=== PATIENT | female | born 1960 | race Caucasian/White ===

== ENCOUNTER 2021-02-14 10:51 | Outpatient (CLI) | payer OTHER, SELFPAY ==
--- NOTE | ~2021-02-14 | MM_ITS ---
EXAMINATION: MM screening [facility] BI w av HISTORY: Screening TECHNIQUE: Craniocaudal and mediolateral oblique 3-D tomosynthesis images were obtained and synthetic 2-D images were generated. CAD analysis was submitted and interpreted. COMPARISON: Comparison to multiple prior studies sequentially, with oldest reviewed study dated 08/14. BREAST PARENCHYMAL COMPOSITION: There are scattered areas of fibroglandular density. FINDINGS: There is no evidence of suspicious mass, calcification, or architectural distortion to sugg est malignancy in either breast. There has been no suspicious interval change. IMPRESSION: 1. No mammographic evidence of malignancy. 2. Recommend routine screening mammography in one year. BI-RADS Category 1: Negative Reviewed, dictated and finalized at location A.
--- NOTE | ~2021-02-14 | DEXA_ITS ---
Bone Density Report Name: Melodie Coon Age: 61 Sex: Female Ethnicity: White Date of : 1960 Indication: osteopenia; prior fracture; hysterectomy; postmenopausal Referring Provider: Jayne Zuleta Study: Bone densitometry was performed. Exam Date: February 14, 2021 Accession number: [id number] Bone Density: Region BMD T-score Z-score Classification AP Spine (L1-L4) 0.737 -2.8 -1.2 Osteoporosis Femoral Neck (Left) 0.557 -2.6 -1.2 Osteoporosis Total Hip (Left) 0.736 -1.7 -0.6 Osteopenia Femoral Neck (Right) 0.545 -2.7 -1.3 Osteoporosis Total Hip (Right) 0.670 -2.2 -1.1 Osteopenia Total Hip Mean 0.703 -2.0 -0.9 Osteopenia World Health Organization criteria for BMD impression classify patients as: Normal (T-score at or above -1.0), Osteopenia (T-score between -1.0 and -2.5), or Osteoporosis (T-score at or below -2.5). 10-year Fracture Risk: FRAX not reported because: Some T-score for Spine Total or Hip Total or Femoral Neck at or below -2.5 Previous Exams: Region Exam Age BMD T-score BMD Change BMD Change Date g/cm2 vs Baseline vs Previous AP Spine(L1-L4) 02/14/2021 61 0.737 -2.8 -0.068* -0.068* 05/15/2013 53 0.806 -2.2 Total Hip(Left) 02/14/2021 61 0.736 -1.7 -0.071* -0.071* 05/15/2013 53 0.807 -1.1 Total Hip(Right) 02/14/2021 61 0.670 -2.2 -0.065* -0.065* 05/15/2013 53 0.735 -1.7 *Denotes significance at 95% confidence level, LSC for AP Spine = 0.022 g/cm2, LSC for Total Hip = 0.027 g/cm2 Clinical Information Provided by Patient: Has had a low trauma fracture Has the following medical conditions: Hysterectomy Patient maximum height was 62 Menopause Age: 43 Does not regularly consume dairy products Drinks caffeinated beverages Onset of menses at age 9 Number of children 2 Impression: The patient has established osteoporosis, based on the Total Spine T-score and the existence of a prior fracture. The patient has risk factors, including: previous fracture. The BMD for the AP Spine(L1-L4) decreased, changing by -0.068 since the last DXA exam. The BMD for the Total Hip(Left) decreased, changing by -0.071 since the last DXA exam. The BMD for the Total Hip(Right) decreased, changing by -0.065 since the last DXA exam. Discussion: HIGH RISK OF FRACTURE. BONE DENSITY IS UNDESIRABLY LOW AT ONE OR MORE SKELETAL SITES, CONSISTENT WITH POSTMENOPAUSAL OSTEOPOROSIS. This patient's lowest T-score, in
== END 2021-02-14 10:52 ==
PROVIDERS: PCP Nurse Practitioner Family; Visit Provider Student in an Organized Health Care Education/Training Program
DX: Z12.31 Encounter for screening mammogram for malignant neoplasm of breast (principal); Z78.0 Asymptomatic menopausal state; M81.0 Age-related osteoporosis without current pathological fracture; M85.852 Other specified disorders of bone density and structure, left thigh; M85.851 Other specified disorders of bone density and structure, right thigh
CPT/HCPCS: 77063; 77067; 77080

== ENCOUNTER 2022-03-12 14:02 | Outpatient (CLI) | payer OTHER, SELFPAY ==
[2022-03-12 19:58] LABS: Hematocrit 40.8 % (37.0-47.0); Hemoglobin 13.8 g/dL (12.0-15.0); Mean Corpuscular HGB Conc 33.8 g/dl (32-36); Mean Corpuscular Hemoglobin 30.7 pg (26-34); Mean Corpuscular Volume 90.7 fl (80-100); Mean Platelet Volume 10.7 fl (7.4-10.4); Platelet Count Result 173 k/mm3 (150-375); Red Cell Distribution Width 12.3 % (11.5-14.5); White Blood Count 4.3 K/mm3 (4.5-10.0)
[2022-03-12 21:18] LABS: Alanine Aminotransferase 16 U/L (6-35); Albumin Level 4.4 g/dL (3.5-5.1); Alkaline Phosphatase 80 U/L (38-126); Anion Gap 9 mmol/L (8-16); Aspartate Amino Transferase 40 U/L (14-36); Bilirubin,Total 0.8 mg/dL (0.2-1.3); Blood Urea Nitrogen 19 mg/dL (7-17); Calcium 9.5 mg/dL (8.4-10.2); Carbon Dioxide 26 mmol/L (22-30); Chloride 103 mmol/L (98-107); Cholesterol 127 mg/dL (0-200); Estimated Glomerular Filt Rate > 60; Glucose 95 mg/dL (65-110); HDL Direct 35 mg/dL; Potassium 4.1 mmol/L (3.4-5.0); Sodium 138 mmol/L (137-145); Triglycerides 145 mg/dL (<150)
[2022-03-12 21:28] LABS: LDL Cholesterol Direct 65 mg/dL
== END 2022-03-12 14:03 | disposition home or self-care (01) ==
LOC: ANHBWCLAB 14:04
PROVIDERS: PCP Family Medicine; Visit Provider Family Medicine
DX: Z00.00 Encounter for general adult medical examination without abnormal findings (principal); E03.9 Hypothyroidism, unspecified
CPT/HCPCS: 36415; 80053; 80061; 84443; 85027

== ENCOUNTER 2022-03-26 09:21 | Outpatient (CLI) | payer OTHER, SELFPAY ==
[2022-03-26 19:24] LABS: Basophils Percent Auto 1.2 % (0.2-1.2); Eosinophils Absolute Auto 0.1 K/mm3 (0-0.3); Eosinophils Percent Auto 2.6 % (0-4.4); Hemoglobin 13.5 g/dL (12.0-15.0); Immature Granulocyte Absolute 0.01 K/mm3 (0.00-0.031); Immature Granulocyte Percent A 0.3 % (0-0.5); Lymphocytes Absolute Auto 1.23 K/mm3 (0.9-3.2); Lymphocytes Percent Auto 36.1 % (18.3-44.2); Mean Corpuscular HGB Conc 33.8 g/dl (32-36); Mean Corpuscular Hemoglobin 30.8 pg (26-34); Mean Corpuscular Volume 91.1 fl (80-100); Mean Platelet Volume 10.9 fl (7.4-10.4); Monocytes Absolute Auto 0.3 K/mm3 (0.1-0.6); Monocytes Percent Auto 9.7 % (2.6-8.5); Neutrophils Absolute Auto 1.7 K/mm3 (1.3-6.7); Neutrophils Percent Auto 50.1 % (45.5-73.1); Platelet Count Result 182 k/mm3 (150-375); Red Blood Count 4.39 M/mm3 (4.2-5.4); Red Cell Distribution Width 12.7 % (11.5-14.5); White Blood Count 3.4 K/mm3 (4.5-10.0)
[2022-03-26 19:36] LABS: Alanine Aminotransferase 13 U/L (6-35); Albumin Level 4.1 g/dL (3.5-5.1); Alkaline Phosphatase 81 U/L (38-126); Aspartate Amino Transferase 49 U/L (14-36); Bilirubin,Total 0.8 mg/dL (0.2-1.3)
[2022-03-26 19:59] LABS: Thyroid Stimulating Hormone 0.371 uIU/mL (0.465-4.680)
[2022-03-26 20:09] LABS: Hepatitis B Surface Antigen Negative (Negative)
[2022-03-26 20:15] LABS: HAV RESULT Negative (Negative); Hepatitis B Core IgM Result Negative (Negative)
[2022-03-26 21:17] LABS: Hepatitis C Virus Antibody Reactive (Negative)
[2022-03-30 13:48] LABS: Hepatitis C RNA, Quant PCR <15 IU/mL
== END 2022-03-26 09:22 | disposition home or self-care (01) ==
PROVIDERS: PCP Family Medicine; Visit Provider Family Medicine
DX: D72.819 Decreased white blood cell count, unspecified (principal); R74.8 Abnormal levels of other serum enzymes; R79.89 Other specified abnormal findings of blood chemistry
CPT/HCPCS: 36415; 80074; 80076; 84443; 85025; 87522

== ENCOUNTER 2022-06-10 08:33 | Outpatient (CLI) | payer OTHER, SELFPAY ==
[2022-06-10 19:47] LABS: Alanine Aminotransferase 15 U/L (6-35); Alkaline Phosphatase 63 U/L (38-126); Aspartate Amino Transferase 42 U/L (14-36); Bilirubin,Total 0.8 mg/dL (0.2-1.3)
== END 2022-06-10 08:34 | disposition home or self-care (01) ==
PROVIDERS: PCP Family Medicine; Visit Provider Family Medicine
DX: R74.8 Abnormal levels of other serum enzymes (principal); R79.89 Other specified abnormal findings of blood chemistry
CPT/HCPCS: 36415; 80076; 84443

== ENCOUNTER → 2022-07-02 08:08 | Outpatient (CLI) | payer OTHER, SELFPAY ==
--- NOTE | ~2022-07-02 | US_ITS ---
US abdomen limited INDICATION: Elevated liver function tests PROCEDURE: Realtime right upper abdominal ultrasound. COMPARISON: No prior studies for comparison. FINDINGS: The pancreas is normal without focal mass or pancreatic ductal dilation. There are multipl e liver cysts, largest measuring 1.9 cm. There is an echogenic focus in the liver measuring 9 mm, lik alberta focal calcification. There is fatty infiltration of the liver. There is normal directional flow i n the portal vein. The gallbladder is normal without stones, gallbladder wall thickening or pericholecystic fluid. Comm on bile duct measures 4 mm. No sonographic Hankins's sign. Incidental note is made of a 3.3 cm right renal cyst. IMPRESSION: 1: Liver and right renal cysts. 2: Hepatic steatosis. Reviewed, dictated and finalized at location A. SPOT WASHER
== END ==
LOC: EXPGOSHRAD 08:10
PROVIDERS: PCP Family Medicine; Visit Provider Family Medicine
DX: R74.8 Abnormal levels of other serum enzymes (principal); N28.1 Cyst of kidney, acquired; K76.89 Other specified diseases of liver; K76.0 Fatty (change of) liver, not elsewhere classified
CPT/HCPCS: 76705

== ENCOUNTER 2022-08-06 11:37 | Outpatient (CLI) | payer MEDICAID, SELFPAY ==
[2022-08-06 11:50] LABS: Basophils Percent Auto 0.9 % (0.2-1.2); Eosinophils Absolute Auto 0.2 K/mm3 (0-0.3); Eosinophils Percent Auto 3.9 % (0-4.4); Hematocrit 40.3 % (37.0-47.0); Hemoglobin 13.8 g/dL (12.0-15.0); Immature Granulocyte Absolute 0.01 K/mm3 (0.00-0.031); Immature Granulocyte Percent A 0.2 % (0-0.5); Lymphocytes Absolute Auto 1.27 K/mm3 (0.9-3.2); Mean Corpuscular HGB Conc 34.2 g/dl (32-36); Mean Corpuscular Hemoglobin 31.2 pg (26-34); Mean Platelet Volume 9.9 fl (7.4-10.4); Monocytes Absolute Auto 0.4 K/mm3 (0.1-0.6); Monocytes Percent Auto 9.4 % (2.6-8.5); Neutrophils Absolute Auto 2.5 K/mm3 (1.3-6.7); Neutrophils Percent Auto 56.6 % (45.5-73.1); Platelet Count Result 166 k/mm3 (150-375); Red Blood Count 4.43 M/mm3 (4.2-5.4); Red Cell Distribution Width 12.1 % (11.5-14.5); White Blood Count 4.4 K/mm3 (4.5-10.0)
[2022-08-06 12:35] LABS: Iron 75 ug/dL (37-170)
[2022-08-06 12:37] LABS: Alanine Aminotransferase 19 U/L (6-35); Albumin Level 4.4 g/dL (3.5-5.1); Alkaline Phosphatase 69 U/L (38-126); Anion Gap 8 mmol/L (8-16); Aspartate Amino Transferase 22 U/L (14-36); Bilirubin,Total 0.5 mg/dL (0.2-1.3); Blood Urea Nitrogen 15 mg/dL (7-17); Calcium 8.9 mg/dL (8.4-10.2); Carbon Dioxide 27 mmol/L (22-30); Chloride 106 mmol/L (98-107); Estimated Glomerular Filt Rate > 60; Glucose 100 mg/dL (65-110); Lactate Dehydrogenase 133 U/L (120-246); Potassium 4.1 mmol/L (3.4-5.0); Sodium 141 mmol/L (137-145)
[2022-08-06 12:45] LABS: Percent Iron Saturation 30 % (20-50)
[2022-08-06 13:45] LABS: Folic Acid > 20.0 ng/mL (2.76->20); Vitamin B12 > 1000.0 pg/mL (239-931)
[2022-08-10 14:28] LABS: Methylmalonic Acid 133 nmol/L (87-318)
== END 2022-08-06 11:38 | disposition home or self-care (01) ==
LOC: ANHLAB 11:38
PROVIDERS: PCP Family Medicine; Visit Provider Internal Medicine Hematology & Oncology
DX: D72.819 Decreased white blood cell count, unspecified (principal)
CPT/HCPCS: 36415; 80053; 82607; 82728; 82746; 83540; 83550; 83615; 83921; 85025; 86038; 86039

== ENCOUNTER 2022-12-24 09:36 | Outpatient (CLI) | payer OTHER, SELFPAY ==
--- NOTE | ~2022-12-24 | XR_ITS ---
EXAMINATION: [id number] INDICATION: Left upper chest pain TECHNIQUE: A frontal view of the chest and 3 views of the left ribs were obtained. COMPARISON: None. FINDINGS: The lungs are free of acute opacities. No pleural effusion or pneumothorax. The cardiomedia stinal silhouette is normal. No displaced rib fracture is identified. IMPRESSION: 1. No acute cardiopulmonary abnormality or evidence of displaced rib fracture. Reviewed, dictated and finalized at location L.
== END 2022-12-24 09:37 | disposition home or self-care (01) ==
LOC: ANHBWCIMG 09:38
PROVIDERS: PCP Family Medicine; Visit Provider Nurse Practitioner
DX: R07.81 Pleurodynia (principal)
CPT/HCPCS: 71101

== ENCOUNTER 2023-03-15 08:40 | Outpatient (CLI) | payer MEDICARE, SELFPAY ==
[2023-03-15 19:24] LABS: Basophils Percent Auto 0.9 % (0.2-1.2); Eosinophils Absolute Auto 0.1 K/mm3 (0-0.3); Eosinophils Percent Auto 1.7 % (0-4.4); Hematocrit 40.8 % (37.0-47.0); Hemoglobin 13.4 g/dL (12.0-15.0); Immature Granulocyte Absolute 0.01 K/mm3 (0.00-0.031); Immature Granulocyte Percent A 0.2 % (0-0.5); Lymphocytes Absolute Auto 0.95 K/mm3 (0.9-3.2); Lymphocytes Percent Auto 20.5 % (18.3-44.2); Mean Corpuscular HGB Conc 32.8 g/dl (32-36); Mean Corpuscular Hemoglobin 31.2 pg (26-34); Mean Corpuscular Volume 94.9 fl (80-100); Mean Platelet Volume 10.7 fl (7.4-10.4); Monocytes Absolute Auto 0.4 K/mm3 (0.1-0.6); Monocytes Percent Auto 8.4 % (2.6-8.5); Neutrophils Absolute Auto 3.2 K/mm3 (1.3-6.7); Neutrophils Percent Auto 68.3 % (45.5-73.1); Platelet Count Result 166 k/mm3 (150-375); Red Cell Distribution Width 12.4 % (11.5-14.5); White Blood Count 4.6 K/mm3 (4.5-10.0)
[2023-03-15 20:57] LABS: Folic Acid > 20.0 ng/mL (2.76->20)
== END 2023-03-15 08:41 | disposition home or self-care (01) ==
PROVIDERS: PCP Family Medicine; Visit Provider Internal Medicine Hematology & Oncology
DX: D72.819 Decreased white blood cell count, unspecified (principal)
CPT/HCPCS: 36415; 82607; 82746; 85025

== ENCOUNTER → 2023-09-09 10:46 | Outpatient (CLI) | payer MEDICARE, SELFPAY ==
--- NOTE | ~2023-09-09 | MM_ITS ---
EXAMINATION: MM screening [facility] BI w av HISTORY: Screening mammogram TECHNIQUE: Craniocaudal and mediolateral oblique 3-D tomosynthesis images were obtained and synthetic 2-D images were generated. CAD analysis was submitted and interpreted. COMPARISON: 02/14/2021, 09/23/2018, 04/26/2017, 04/14/2017 BREAST PARENCHYMAL COMPOSITION: There are scattered areas of fibroglandular density. FINDINGS: No suspicious mass, calcification, or architectural distortion are identified in either chelo ast to suggest malignancy. There has been no suspicious interval change. IMPRESSION: 1. No mammographic evidence of malignancy. 2. Recommend routine screening mammography in one year. BI-RADS Category 1: Negative Reviewed, dictated and finalized at location A. SCHOOL MUSIC DIRECTOR
== END ==
PROVIDERS: PCP Family Medicine; Visit Provider Family Medicine
DX: Z12.31 Encounter for screening mammogram for malignant neoplasm of breast (principal)
CPT/HCPCS: 77063; 77067

== ENCOUNTER 2023-12-09 09:41 | Outpatient (CLI) | payer MEDICARE, SELFPAY ==
[2023-12-09 19:02] LABS: Hematocrit 42.6 % (37.0-47.0); Hemoglobin 13.9 g/dL (12.0-15.0); Mean Corpuscular HGB Conc 32.6 g/dl (32-36); Mean Corpuscular Hemoglobin 30.6 pg (26-34); Mean Corpuscular Volume 93.8 fl (80-100); Mean Platelet Volume 10.4 fl (7.4-10.4); Platelet Count Result 168 k/mm3 (150-375); Red Blood Count 4.54 M/mm3 (4.2-5.4); Red Cell Distribution Width 12.7 % (11.5-14.5); White Blood Count 3.6 K/mm3 (4.5-10.0)
[2023-12-09 19:16] LABS: Anion Gap 6 mmol/L (4-12); Blood Urea Nitrogen 19 mg/dL (7-17); Calcium 9.4 mg/dL (8.4-10.2); Carbon Dioxide 28 mmol/L (22-30); Chloride 106 mmol/L (98-107); Cholesterol 150 mg/dL (0-200); Estimated Glomerular Filt Rate > 60; Glucose 81 mg/dL (65-110); HDL Direct 43 mg/dL; Potassium 4.1 mmol/L (3.4-5.0); Sodium 140 mmol/L (137-145); Triglycerides 110 mg/dL (<150)
[2023-12-09 19:30] LABS: LDL Cholesterol Direct 86 mg/dL
[2023-12-09 19:42] LABS: Thyroid Stimulating Hormone 0.901 uIU/mL (0.465-4.680)
[2023-12-09 20:03] LABS: Vitamin D 25 Hydroxy 47.5 ng/mL
== END 2023-12-09 09:42 | disposition home or self-care (01) ==
PROVIDERS: PCP Nurse Practitioner Adult Health; Visit Provider Nurse Practitioner Adult Health
DX: E04.1 Nontoxic single thyroid nodule (principal); I10 Essential (primary) hypertension; M81.0 Age-related osteoporosis without current pathological fracture
CPT/HCPCS: 36415; 80048; 80061; 82306; 84443; 85027

== ENCOUNTER 2024-02-17 08:49 | Outpatient (CLI) | payer MEDICARE, SELFPAY ==
[2024-02-17 19:14] LABS: Appearance Urine Clear (Clear); Bacteria Urine None Seen /hpf; Bilirubin Urine Negative (Negative); Blood Urine Negative (Negative); Color Urine Yellow (Yellow); Glucose Urine UA Negative (Negative); Ketones Urine Negative (Negative); Leukocyte Esterase Ur 3+ LEU/UL (Negative); Nitrate Urine Negative (Negative); Protein Urine Negative (Negative); RBC Urine 0-2 /hpf (0-2); Specific Grav Ur 1.012 (1.001-1.035); Squamous Epithelial Cell Urine None Seen /hpf (Few); Urobilinogen Urine 0.2 mg/dL (<2.0); WBC Urine 51-100 /hpf (0-3); pH Urine 6.5 (5.0-9.0)
[2024-02-17 19:28] LABS: Add Urine Microscopic? YES
== END 2024-02-17 08:50 | disposition home or self-care (01) ==
PROVIDERS: PCP Nurse Practitioner Adult Health; Visit Provider Nurse Practitioner Adult Health
DX: R39.9 Unspecified symptoms and signs involving the genitourinary system (principal)
CPT/HCPCS: 81001; 87086

== ENCOUNTER 2024-04-26 10:27 | Outpatient (CLI) | payer MEDICARE, SELFPAY ==
[2024-04-26 18:58] LABS: Basophils Absolute Auto 0.1 K/mm3 (0.0-0.1); Basophils Percent Auto 1.1 % (0.2-1.2); Eosinophils Absolute Auto 0.1 K/mm3 (0-0.3); Eosinophils Percent Auto 1.7 % (0-4.4); Hematocrit 41.7 % (37.0-47.0); Hemoglobin 14.3 g/dL (12.0-15.0); Immature Granulocyte Absolute 0.01 K/mm3 (0.00-0.031); Immature Granulocyte Percent A 0.2 % (0-0.5); Lymphocytes Absolute Auto 1.32 K/mm3 (0.9-3.2); Lymphocytes Percent Auto 28.8 % (18.3-44.2); Mean Corpuscular HGB Conc 34.3 g/dl (32-36); Mean Corpuscular Hemoglobin 31.8 pg (26-34); Mean Corpuscular Volume 92.9 fl (80-100); Mean Platelet Volume 10.4 fl (7.4-10.4); Monocytes Absolute Auto 0.4 K/mm3 (0.1-0.6); Monocytes Percent Auto 8.3 % (2.6-8.5); Neutrophils Absolute Auto 2.7 K/mm3 (1.3-6.7); Neutrophils Percent Auto 59.9 % (45.5-73.1); Platelet Count Result 155 k/mm3 (150-375); Red Blood Count 4.49 M/mm3 (4.2-5.4); Red Cell Distribution Width 12.2 % (11.5-14.5); White Blood Count 4.6 K/mm3 (4.5-10.0)
[2024-04-26 19:46] LABS: Anion Gap 4 mmol/L (4-12); Blood Urea Nitrogen 16 mg/dL (7-17); Carbon Dioxide 29 mmol/L (22-30); Chloride 106 mmol/L (98-107); Estimated Glomerular Filt Rate > 60; Glucose 97 mg/dL (65-110); Potassium 4.4 mmol/L (3.4-5.0); Sodium 139 mmol/L (137-145)
[2024-04-26 20:54] LABS: Folic Acid > 20.0 ng/mL (2.76->20)
== END 2024-04-26 10:28 | disposition home or self-care (01) ==
LOC: ANHBWCLAB 10:29
PROVIDERS: PCP Nurse Practitioner Adult Health; Visit Provider Internal Medicine Hematology & Oncology
DX: D72.819 Decreased white blood cell count, unspecified (principal)
CPT/HCPCS: 36415; 80048; 82607; 82746; 85025

== ENCOUNTER 2024-06-15 10:22 | Outpatient (CLI) | payer MEDICARE, SELFPAY ==
[2024-06-15 19:29] LABS: Thyroid Stimulating Hormone 0.735 uIU/mL (0.465-4.680)
== END 2024-06-15 10:23 | disposition home or self-care (01) ==
PROVIDERS: PCP Nurse Practitioner Adult Health; Visit Provider Nurse Practitioner Adult Health
DX: E03.9 Hypothyroidism, unspecified (principal)
CPT/HCPCS: 36415; 84443

== ENCOUNTER 2024-09-14 10:39 | Outpatient (CLI) | payer MEDICARE, SELFPAY ==
--- NOTE | ~2024-09-14 | MM_ITS ---
EXAMINATION: MM screening [facility] BI w av HISTORY: Screening TECHNIQUE: Craniocaudal and mediolateral oblique 3-D tomosynthesis images were obtained and synthetic 2-D images were generated. CAD analysis was submitted and interpreted. COMPARISON: Comparison to multiple prior studies sequentially, with oldest reviewed study dated 2016. BREAST PARENCHYMAL COMPOSITION: Not dense: There are scattered areas of fibroglandular density. FINDINGS: There is no evidence of suspicious mass, calcification, or architectural distortion to sugg est malignancy in either breast. There has been no suspicious interval change. IMPRESSION: 1. No mammographic evidence of malignancy. 2. Recommend routine screening mammography in one year. BI-RADS Category 1: Negative Reviewed, dictated and finalized at location B. DOCTOR
== END 2024-09-14 10:40 | disposition home or self-care (01) ==
LOC: MICIMG 10:39
PROVIDERS: PCP Nurse Practitioner Adult Health; Visit Provider Family Medicine
DX: Z12.31 Encounter for screening mammogram for malignant neoplasm of breast (principal)
CPT/HCPCS: 77063; 77067

== ENCOUNTER 2025-04-30 08:41 | Outpatient (CLI) | payer MEDICARE, SELFPAY ==
--- OUTSIDE RECORDS SUMMARY | 2025-04-30 09:12 | XMS_ITS | Clinical Summary ---
Author Organization [address] Address [address] [place] [address] Care Team Providers Care Tiller Man Name Role Phone Selene Amezcua NP Primary Care Provider [phone] Allergies No known active allergies Medications cyanocobalamin (Vitamin B-12) 1,000 mcg tablet 06/11/2015Vitamin B-12, po solid 1000 mcg TabletPOas directedCurrent Medication 06/11/20 15 Active multivitamin with minerals tablet Take 1 tablet by mouth daily Active vitamin B complex capsule Take 1 capsule by mouth daily Active acidophilus-pect in, citrus 100 million cell-10 mg capsule Take by mouth daily Probiotic Active ONCOLOGY NON FORMULARY, FOR INPATIENT USE, Take by mouth daily Tart Mejia Active fluticasone propionate (FLONASE) 50 mcg/actuation nasal sprayIndications :Seasonal allergic rhinitis, unspecified trigger Administer 2 sprays into each nostril daily 16 g 01/01/20 21 Active Additional Information Patient not taking.Reported on 06/02/2021 levothyroxine (SYNTHROID) 100 mcg tablet Take 1 tablet (100 mcg total) by mouth balance sheet analyst before breakfast 90 tablet 3 03/13/20 21 Active calcium cit/mag/D3/Zn/co p/alona (CALCIUM CITRATE PLUS ORAL) Take 1,000 mg by mouth Active alendronate (FOSAMAX) 70 mg tabletIndication s:Osteoporosis without current pathological fracture, unspecified osteoporosis type Take 1 tablet (70 mg total) by mouth every 7 days Take in the morning with a full glass of water, on an empty stomach, and do not take anything else by mouth or lie down for the next 30 min. 4 tablet 11 06/02/20 21 Active Eliquis 5 mg tablet Take 1 tablet by mouth twice daily 90 tablet 03/12/20 22 Active meclizine (ANTIVERT) 25 mg tablet Take 1 tablet (25 mg total) by mouth 3 (three) times a day as needed for dizziness 30 tablet 01/12/20 25 Active Active Problems Problem Noted Date Diagnosed Date Acute right-sided low back pain without sciatica 09/19/2020 Assessment & Plan (09/19/2020 1:38 PM SOLICITOR PATENT): Medrol dose pack sent. Not to use NSAIDs while taking medrol. Encouraged otc tylenol prn back pain. Tylenol 3000g/day max dose. Discussed ice, gentle ROM, increased activity/core strengthening & other non pharm methods of pain relief. Can continue cyclobenzaprine that was sent. Reviewed that she can cut in half (makes her sleepy). Denies bowel/bladder dysfunction. Denies cauda equina. Reviewed red flags. Encounter for osteoporosis s creening in asymptomatic postmenopausal patient 08/19/2020 Assessment & Plan (08/19/2020 9:37 AM SOLICITOR PATENT): DEXA ordered. Will contact with results once received. Hypothyroidism 08/19/2020 Assessment & Plan (08/19/2020 10:05 AM SOLICITOR PATENT): Levothyroxine 100mcg daily TSH/T4 ordered; will contact with results when received. Reviewed med SE & scheduling. Reviewed sxs hypo/hyperthyroidism. No changes at this time. Encounter for screening mamm ogram for malignant neoplasm of breast 08/19/2020 Assessment & Plan (08/19/2020 9:38 AM SOLICITOR PATENT): Mammogram order given; will call with results when received. Encouraged to perform monthly SBE. Personal history of pulmonary embolism Assessment & Plan (08/19/2020 10:04 AM SOLICITOR PATENT): Taking eliquis 5mg BID. Has had 3 PE's since 1984 (2 since 2015). Encounter for screening for lipoid disorders Assessment & Plan (08/19/2020 9:38 AM SOLICITOR PATENT): Lipid panel ordered; will call w/results when received. Reviewed diet/exercise recommendations. History of hepatitis C 08/19/2020 Assessment & Plan (08/19/2020 10:18 AM SOLICITOR PATENT): H/o Hep C from blood transfusion. Completed treatment 6-7 yrs ago. Has completely resolved. Anemia 05/09/2015 Resolved Problems Problem Noted Date Diagnosed Date Resolved Date Class 1 obesity due to exces s calories without serious comorbidity with body mass index (BMI) of 30.0 to 30.9 in adult 09/19/202002/2021 Assessment & Plan (09/19/2020 1:15 PM SOLICITOR PATENT): Reviewed need to lose weight, reviewed health benefits. Reviewed recommendations for daily intake & activity 20-30 minutes/day. Discussed healthy diet and importance of regular physical activity. BMI 29.0-29.9,adult 08/19/2020 09/19/19 Assessment & Plan (08/19/2020 9:37 AM SOLICITOR PATENT): Reviewed need to lose weight, reviewed health benefits. Reviewed recommendations for daily intake & activity 20-30 minutes/day. Discussed healthy diet and importance of regular physical activity. Need for influenza vaccination 08/19/2020 09/19/2020 Assessment & Plan (08/19/2020 9:37 AM SOLICITOR PATENT): Flu vaccine given today. Discussed possible tenderness/redness at injection site. Encounter for medical examin [facility] [place] to establish care 08/19/2020 09/19/2020 Assessment & Plan (08/19/2020 9:40 AM SOLICITOR PATENT): -reviewed screening guidelines: no family history of breast or colon cancer. -Denies SBE, encouraged monthly SBEs. Mammogram screening to start at 40 y/o unless concerns before that time. -Colonoscopy recommended at 50 years of age. -UTD on immunizations. -discussed diet/exercise: daily recommendations of 20-30 minutes physical activity daily, watch fat/sugar intake. -denies safety/violence. Wears seatbelt. Aware to not text/talk and drive. -does not smoke nor drink ETOH -lives at home with supportive family Other halfway (current) drug therapy 05/09/2015 08/19/2020 Pulmonary embolism 04/27/2014 Viral hepatitis C without hepatic coma 11/25/2012 08/19/2020 Chronic hepatitis 05/27/2012 08/19/2020 Assessment & Plan (08/19/2020 10:02 AM SOLICITOR PATENT): H/o Hep C from blood transfusion. Completed treatment 6-7 yrs ago. Has completely resolved. Immunizations Immunization Administration Dates Next Due Influenza, Quadrivalent, Spl it, Preservative Free, Intramuscular 08/19/2020 Influenza, Trivalent, IM (MDV) 08/12/2015 Influenza, Trivalent, Preser vative Free, Intramuscular 04/26/2016 Influenza, Unspecified 05/13/2022,2020(Deferred: Patient Refused),07/26/2020(Deferred: Patient Refused),04/25/2019(Deferred: Patient Refused),04/25/2018,06/11/2015, 015,09/04/2014,08/14/2014 Surgical History Surgery Date Site/Laterality Comments SECTION 06/25/1979 - 07/25/1979 SECTION 03/26/1985 - 04/24/1985 ECTOPIC SURGERY 02/23/1983 - 03/25/1983 HYSTERECTOMY 07/26/1986 - 07/25/1987 HERNIA REPAIR 1989? BREAST LUMPECTOMY 2 removed, 1989? Medical History Medical History Date Comments Hypothyroidism Pulmonary embolism 1984, two in last 5-6 years (since 2015) Infectious viral hepatitis Family History Medical History Relation Name Comments Stroke Brother 1 Lenin while working o ut in gym, collapsed Hypertension Brother 2 Milton Prostate cancer Brother 2 Milton Stroke Brother 3 Arnoldo Osteoporosis Mother Stroke Mother Thyroid disease Mother Hypertension Sister Relation Name Status Comments Brother 1 Lenin (Age 69) Brother 2 Milton Alive Brother 3 Arnoldo Alive Father Alive Mother (Age 81) Sister Alive Social History Tobacco Use Types Packs/Day Years Used Date Smoking Tobacco: Never Smokeless Tobacco: Never Alcohol Use Standard Drinks/Week Comments Never 0 (1 standard drink = 0.6 oz pur e alcohol) AUDIT-C Answer Date Recorded Q1: How often do you have a drink containing alc ohol? Monthly or less 06/02/2021 Q2: How many drinks containi ng alcohol do you have on a typical day when you are drinking? 1 or 2 06/02/2021 Q3: How often do you have si x or more drinks on one occasion? Never 06/02/2021 PHQ-2 Answer Date Recorded PHQ-2 Total Score (If total score is 3 or more points, staff should administer the PHQ-9) 0 06/02/2021 Personal Safety Answer Date Recorded Have you ever been in or are you currently in a harmful physical or emotional relationship or is someone making you feel afraid or unsafe? Denies 01/10/2025 Comments No Sex and Gender Information Value Date Recorded Sex Assigned at Not on file Legal Sex Female 3:39 AM SOLICITOR PATENT Gender Identity Not on file Sexual Orientation Not on file Obstetrics History Last Filed Vital Signs Vital Sign Reading Time Taken Comments Blood Pressure 143/78 01/11/2025 1:15 AM CDT Pulse 69 01/11/2025 1:15 AM CDT Temperature 37.1 C (98.8 F) 01/10/2025 7:04 PM CDT Respiratory Rate 13 01/11/2025 1:15 AM CDT Oxygen Saturation 96% 01/11/2025 1:15 AM CDT Inhaled Oxygen Concentration - - Weight 71.7 kg (158 lb) 01/10/2025 7:04 PM CDT Height 154.9 cm (5' 1) 01/10/2025 7:04 PM CDT Body Mass Index 29.85 01/10/2025 7:04 PM CDT Plan of Treatment Health Maintenance Due Date Last Done Comments DTaP/Tdap/Td Vaccine (1 - Tdap) 1969 Hepatitis B Screening 01/25/1976 Pneumococcal vaccine 65+ (1 of 2 - PCV) 1977 Zoster Vaccine (1 of 2) 01/25/2008 Colon Cancer Screening-Colonoscopy 04/27/2021 04/27/2011 Breast Cancer Screening-Mammogram 02/14/2022 021, 02/14/2021 Depression Screening 06/02/2022 06/02/2021, 09/19/2020, 08/19/2020 Fall Risk Assessment 06/02/2022 06/02/2021, 09/19/2020, 08/19/2020 Well Visit 65+ 2023 Osteoporosis Screening-Bone Density Scan 02/14/2023 02/14/2021 Influenza Vaccine (#1) 2025 2, 08/19/2020, 04/25/2018, Additional history exists Colon Cancer Screening-CT Colonography Discontinued 04/27/2011 Colon Cancer Screening-DNA Stool Discontinued 04/27/20 Colon Cancer Screening-FIT Discontinued 04/27/2011 Colon Cancer Screening-Sigmoidoscopy Discontinued 04/27/2011 Hepatitis C Screening Completed 08/19/2020 , 08/19/2020, 08/19/2020 Procedures Procedure Name Priority Date/Time Associated Diagnosis Comments DEXA AXIAL SKELETON BONE DENSITY 1 OR MORE SITES Schedule Routine, Read Routine (OP Routine) 02/14/2021 Encounter for osteoporosis screening in asymptomatic postmenopausal patient SCREENING MAMMOGRAM BILATERAL W RUBENS Schedule Routine, Read Routine (OP Routine) 02/14/2021 COLONOSCOPY Routine 04/27/2011 from Last 3 Months or Most Recently Relevant to Health Maintenance Results * Screening Mammogram Bilateral W Rubens (02/14/2021) Anatomical Region Laterality Modality Breast Bilateral Mammography Historical Provider IMG MAMMO PROCEDURES Nichelle l Result * Dexa Axial Skeleton Bone Density 1 or 2 Site (02/14/2021) Anatomical Region Laterality Modality Body N/A Radiographic Norma ging Juanita Persaud NP IMG DXA PROCEDURES Final Result * Colonoscopy (04/27/2011) Anatomical Region Laterality Modality Other Historical Provider ENDOSCOPY PROCEDURES Nichelle l Result from Last 3 Months or Most Recently Relevant to Health Maintenance Insurance [facility] MEDICARE ADVANTAGE Care Teams Tiller Man Relationship Specialty Start Date End Date Selene Amezcua NP [address] [place] [id number] PCP - General Nurse Practitioner 01/10/25
--- OUTSIDE RECORDS SUMMARY | 2025-04-30 09:12 | XMS_ITS | Clinical Summary ---
Author Organization [facility] Address [address] [place] [address] Care Team Providers Care Handle Turner Name Role Phone Sramad Wright MD Primary Care Provider Source Comments [facility],non-owned Affiliates and Associated Physician Practices is amultiple site organization consisting of ambulatory clinics and hospital sitesin [place], [place], [place] and [place]. This disclosure is being madepursuant to the Care Everywhere program and may not contain all information available regarding this patient. Last updated 18.[facility] Active Problems Problem Noted Date Diagnosed Date Anemia 05/09/2015 Other long term care pharmacist (current) drug therapy 5 Viral hepatitis C without hepatic coma 3 Chronic hepatitis 05/27/2012 Family History Medical History Relation Name Comments Hypertension Brother Status: Alive Hypertension Father Status: Alive COPD - Chronic Obstructive Pulmonary Disease Mother Emphysema Mother Status: Alive Hypertension Mother Osteoporosis Mother Hypertension Sister Status: Alive Drug Abuse Neg Hx Relation Name Status Comments Brother Father Mother Sister Social History Tobacco Use Types Packs/Day Years Used Date Smoking Tobacco: Never Smokeless Tobacco: Never Alcohol Use Standard Drinks/Week Comments Yes 0 (1 standard drink = 0.6 oz pur e alcohol) Comments Unknown Sex and Gender Information Value Date Recorded Sex Assigned at Not on file Legal Sex Female 6:41 PM STRUCTURAL BIOLOGIST Gender Identity Not on file Sexual Orientation Not on file Last Filed Vital Signs Vital Sign Reading Time Taken Comments Blood Pressure 148/65 06/02/2013 10:36 AM STRUCTURAL BIOLOGIST Pulse 57 06/02/2013 10:36 AM STRUCTURAL BIOLOGIST Temperature 36.7 C (98 F) 06/02/2013 10:36 AM STRUCTURAL BIOLOGIST Respiratory Rate 12 06/02/2013 10:36 AM STRUCTURAL BIOLOGIST Oxygen Saturation - - Inhaled Oxygen Concentration - - Weight 70.8 kg (156 lb 1.6 oz) 06/02/2013 10:36 AM STRUCTURAL BIOLOGIST Height 158.8 cm (5' 2.5) 06/02/2013 10:36 AM CS T Body Mass Index 28.1 06/02/2013 10:36 AM STRUCTURAL BIOLOGIST Plan of Treatment Health Maintenance Due Date Last Done Comments BONE DENSITY TESTING 1960 COLOGUARD (AGES 45-75) - COLON CA SCREENING 1960 COLON MONITORING 1960 COLONOSCOPY - COLON CA SCREENING 1960 CT COLONOGRAPHY - COLON CA SCREENING 1960 Colorectal Cancer Screening 1960 FIT - COLON CA SCREENING 1960 FLEX SIG - COLON CA SCREENING 1960 LIPID TESTING 1960 MAMMOGRAM 1960 DTAP/TDAP/TD VACCINES (1 - Tdap) 1977 PNEUMOCOCCAL VACCINE 50+ (1 of 1 - PCV) 01/25/2008 ZOSTER VACCINE (1 of 2) 01/25/2008 DEPRESSION SCREENING 07/26/2024 COVID-19 VACCINE (1 - season) 2025 INFLUENZA VACCINE (#1) 2025 Respiratory Syncytial Virus (RSV) Vaccine Pt: or over 60 yrs (1 - 1-dose 75+ series) 2033 HEPATITIS C SCREENING Completed 06/02/2013 , 05/30/2013, 11/25/2012, Additional history exists HEPATITIS B VACCINE Aged Out No longe r eligible based on patient's age to complete this topic HIB VACCINE Aged Out No longer eligi ble based on patient's age to complete this topic HPV VACCINE Aged Out No longer eligi ble based on patient's age to complete this topic MENINGOCOCCAL (Group B) VACCINE SHARED DECISION-MAKING Aged Out No longer eligible based on patient's age to complete this topic MENINGOCOCCAL GROUPS A/C/Y/W VACCINE Aged Out No longer eligible based on patient's age to complete this topic Procedures Procedure Name Priority Date/Time Associated Diagnosis Comments HEPATITIS C REAL-TIME PCR QUANTASURE Routine 05/30/2013 10:34 AM STRUCTURAL BIOLOGIST from Last 3 Months or Most Recently Relevant to Health Maintenance Results * HEPATITIS C REAL-TIME PCR QUANTASURE (05/30/2013 10:34 AM STRUCTURAL BIOLOGIST) Hepatitis C Virus RNA PCR Quantitative <15 NOT DETECTED <15 IU/mL [facility] Hepatitis C Virus RNA Log IU/mL <1.18 NOT DETECTED <1.18 Log IU/mL [facility] See Note [facility] Comment: Please note: The guidelines for the use of new anti-HCV therapies (boceprevir and telaprevir) recommend using a test method that detects plasma viral nucleic acid levels as low as 10 IU/mL. This assay has a Limit of Detection of 10-13 IU/mL and conforms to the recommendation. Quantitation of plasma HCV nucleic acid levels below 15 IU/mL (the Lower Limit of Quantitation for this test) may not be linear, and in this circumstance are reported as <15 IU/mL HCV RNA Detected. This test was performed using the LIANA(R)AmpliPrep/ LIANA(R)TaqMan(R)HCV Test, v2.0. The performance characteristics of this assay have been determined by [employer]. Performance characteristics refer to the analytical performance of the test. For more information on this test, go to: http://education.[employer]/faq/BPA30w2 Test Performed at: [facility] [place] [address] LOUISE LEAVITT DO,MPH 05/30/2013 10:3 4 AM STRUCTURAL BIOLOGIST 05/30/2013 10:35 AM STRUCTURAL BIOLOGIST Marcia Webb PA-C LAB - SEROLOGY ORDERABL ES Final Result [facility] [id number] from Last 3 Months or Most Recently Relevant to Health Maintenance Care Teams Handle Turner Relationship Specialty Start Date End Date Sarmad Wright MD [address] [place] [address] PCP - General 03/06/11
--- OUTSIDE RECORDS SUMMARY | 2025-04-30 09:12 | XMS_ITS | Clinical Summary ---
Author Organization [facility] Address [address] [place] [address] Care Team Providers Care Rn Gastroenterology Name Role Phone Zana Cool MD Primary Care Provider [phone] Allergies No known active allergies Medications alendronate (FOSAMAX) 70 mg tablet TAKE 1 TABLET BY MOUTH ONCE A WEEK IN THE MORNING WITH A FULL GLASS OF WATER, 30 MINUTES BEFORE THE FIRST MEAL, BEVERAGE OR MEDICATION OF THE DAY. REMAIN UPRIGHT 2 Active multivitamins with minerals Tablet Take 1 Tablet by mouth daily. Active traZODone (DESYREL) 50 mg tablet Take 25 mg by mouth daily at bedtime. 3 Active vitamin B complex Capsule Take 1 Capsule by mouth daily. Active apixaban (Eliquis) 5 mg tablet Take 1 Tablet by mouth 2 times daily. 2 Active C/sourcherry/quang rabia/grape seed (TART CLAIRE ORAL) Take by mouth. Activ e Lactobacillus acidophilus (Probiotic) 10 billion cell Capsule Take 50 Billion Cells by mouth. Active Active Problems No known active problems Encounters Date Type Department Care Team Description 04/10/2025 External Device Data STL ABSTRACTION Provider, Abstract 04/03/2025 External Device Data STL ABSTRACTION Provider, Abstract 02/28/2025 External Device Data STL ABSTRACTION Provider, Abstract 02/27/2025 External Device Data STL ABSTRACTION Provider, Abstract 02/07/2025 External Device Data STL ABSTRACTION Provider, Abstract 02/07/2025 External Device Data STL ABSTRACTION Provider, Abstract 02/06/2025 External Device Data STL ABSTRACTION Provider, Abstract from Last 3 Months Family History Medical History Relation Name Comments Stroke Brother 1 Stroke Brother 2 Prostate Cancer Brother 3 Skin Cancer Brother 3 Heart Disease Father Prostate Cancer Father Skin Cancer Father COPD Mother Uterine Cancer Sister No Known Problems Son 1 No Known Problems Son 2 Relation Name Status Comments Brother 1 Brother 2 Alive Brother 3 Alive Father Alive Mother Alive Sister Alive Son 1 Alive Son 2 Alive Social History Tobacco Use Types Packs/Day Years Used Date Smoking Tobacco: Never Smokeless Tobacco: Never Tobacco Cessation:Counseling Given: Not Answered Alcohol Use Standard Drinks/Week Comments Never 0 (1 standard drink = 0.6 oz pur e alcohol) Comments Unknown Sex and Gender Information Value Date Recorded Sex Assigned at Not on file Legal Sex Female 11:09 AM CDT Gender Identity Not on file Sexual Orientation Not on file Last Filed Vital Signs Vital Sign Reading Time Taken Comments Blood Pressure 151/79 04/27/2024 1:04 PM CDT Pulse 62 04/27/2024 1:04 PM CDT Temperature 36.5 C (97.7 F) 04/27/2024 1:04 PM CDT Respiratory Rate 16 04/27/2024 1:04 PM CDT Oxygen Saturation 93% 04/27/2024 1:04 PM CDT Inhaled Oxygen Concentration - - Weight 70.3 kg (155 lb) 04/27/2024 1:04 PM CDT Height 157.5 cm (5' 2) 08/06/2022 10:46 AM PRODUCTION MACHINIST Body Mass Index 28.35 08/06/2022 10:46 AM PRODUCTION MACHINIST Plan of Treatment Upcoming Encounters Date Type Department Care Team (Late st Contact Info) Description 05/03/2025 11:00 AM CDT Office Visit [facility] Oncology and Hematology - Ja[place] [address] [facility] [address] [place] [address] Dawood Mathias MD [address] [place] [address] Health Maintenance Due Date Last Done Comments DTAP/TDAP/TD VACCINES (1 - Tdap) 1977 PNEUMOCOCCAL VACCINE 50+ YEA RS (1 of 2 - PCV) 1977 FIT-DNA Q 3 years 2003 FIT/FOBT Q 1 year 2003 Flex Sig/CT Colonography Q 5 years 2003 ZOSTER VACCINE (1 of 2) 01/25/2008 RSV VACCINE (60+ or ) (1 - Risk 60-74 years 1-dose series) 2018 COLORECTAL SCREENING 04/27/2021 04/27/2011 Colorectal Cancer Screening 04/27/2021 BREAST CANCER SCREENING 02/14/2022 02/14/2021, 02/14 Medicare Advantage ([place]) Prev entative Visit/Annual Wellness Visit 07/26/2024 INFLUENZA VACCINE (#1) 2025 , 04/26/2016, 08/12/2015 OSTEOPOROSIS SCREENING 02/14/2026 02/14/2021, [address] [place] [id number] Care Teams Rn Gastroenterology Relationship Specialty Start Date End Date Zana Cool MD PCP - General Family Practice 08/06/22
[2025-04-30 18:32] LABS: Hematocrit 40.7 % (37.0-47.0); Hemoglobin 13.5 g/dL (12.0-15.0); Immature Granulocyte Percent A 0.2 % (0-0.5); Lymphocytes Absolute Auto 1.34 K/mm3 (0.9-3.2); Mean Corpuscular HGB Conc 33.2 g/dl (32-36); Mean Corpuscular Hemoglobin 30.6 pg (26-34); Mean Corpuscular Volume 92.3 fl (80-100); Nucleated Red Blood Cells Absolute Auto 0.000 K/mm3 (0.0-0.012); Nucleated Red Blood Cells Perc 0.0 % (0.0-0.2); Platelet Count Result 173 k/mm3 (150-375); Red Blood Count 4.41 M/mm3 (4.2-5.4); White Blood Count 4.4 K/mm3 (4.5-10.0)
[2025-04-30 18:35] LABS: Alanine Aminotransferase 16 U/L (6-35); Albumin Level 4.2 g/dL (3.5-5.1); Alkaline Phosphatase 64 U/L (38-126); Anion Gap 9 mmol/L (4-12); Aspartate Amino Transferase 71 U/L (14-36); Bilirubin,Total 0.7 mg/dL (0.2-1.3); Blood Urea Nitrogen 15 mg/dL (7-17); Calcium 8.7 mg/dL (8.4-10.2); Carbon Dioxide 24 mmol/L (22-30); Chloride 107 mmol/L (98-107); Estimated Glomerular Filt Rate > 60; Glucose 99 mg/dL (65-110); Potassium 4.0 mmol/L (3.4-5.0); Sodium 140 mmol/L (137-145); Total Protein 6.9 g/dL (6.3-8.2)
[2025-04-30 19:37] LABS: Vitamin B12 449.0 pg/mL (239-931)
== END 2025-04-30 08:42 | disposition home or self-care (01) ==
PROVIDERS: PCP Nurse Practitioner Adult Health; Visit Provider Internal Medicine Hematology & Oncology
DX: D72.819 Decreased white blood cell count, unspecified (principal)
CPT/HCPCS: 36415; 80053; 82607; 85025

== ENCOUNTER 2025-06-25 13:30 | Outpatient (CLI) | payer MEDICARE, SELFPAY ==
--- NOTE | ~2025-06-25 | XR_ITS ---
EXAMINATION: XR knee LT 3V, 06/25/2025 13:30 WAY INSPECTOR HISTORY: chronic bilateral knee pain COMPARISON: No comparisons available. Findings: No acute fracture or malalignment. Moderate tricompartmental degenerative changes Soft tissues unremarkable. Impression: No acute fracture or malalignment. Reviewed, dictated and finalized at location P. INSPECTOR Impression: No acute fracture or malalignment.
--- NOTE | ~2025-06-25 | XR_ITS ---
EXAMINATION: XR knee RT 3V, 06/25/2025 13:30 SOLID WASTE DIVISION SUPERVISOR HISTORY: chronic bilateral knee pain COMPARISON: No comparisons available. Findings: No acute fracture or malalignment. Moderate tricompartmental degenerative changes Soft tissues unremarkable. Impression: No acute fracture or malalignment. Reviewed, dictated and finalized at location P. D WASTE DIVISION SUPERVISOR Impression: No acute fracture or malalignment.
--- OUTSIDE RECORDS SUMMARY | 2025-06-25 14:37 | XMS_ITS | Clinical Summary ---
Author Organization [facility] Yuri Maher Address [address] [place] [address] Care Team Providers Care Senior Product Manager Name Role Phone Unavailable Primary Care Provider Unavailabl e Allergies No known active allergies Medications alendronate [...] Encounters Date Type Department Care Team Description 06/12/2025 External Device Data STL ABSTRACTION Provider, Abstract 05/23/2025 External Device Data STL ABSTRACTION Provider, Abstract 05/22/2025 External Device Data STL ABSTRACTION Provider, Abstract 05/16/2025 External Device Data STL ABSTRACTION Provider, Abstract 05/15/2025 External Device Data STL ABSTRACTION Provider, Abstract 05/03/2025 11:00 AM CDT Office Visit [facility] Oncology and Hematology - Ja[place] [address] [address] Dawood Mathias MD Leukopenia, unspecified type (Primary Dx) 04/10/2025 External Device Data STL ABSTRACTION Provider, [...] Sign Reading Time Taken Comments Blood Pressure 148/81 05/03/2025 10:53 AM CDT Pulse 69 05/03/2025 10:51 AM CDT Temperature 36.2 C (97.1 F) 05/03/2025 10:51 AM CDT Respiratory Rate 15 05/03/2025 10:51 AM CDT Oxygen Saturation 93% 05/03/2025 10:51 AM CDT Inhaled Oxygen Concentration - - Weight 71.8 kg (158 lb 6.4 oz) 05/03/2025 10:51 AM CDT Height 157.5 cm (5' 2) 08/06/2022 10:46 AM SUPERVISOR CORDUROY CUTTING Body Mass Index 28.97 08/06/2022 10:46 AM SUPERVISOR CORDUROY CUTTING Plan of Treatment Upcoming Encounters Date Type Department Care Team (Late st Contact Info) Description 03/07/2026 10:00 AM CDT Office Visit [facility] Oncology and Hematology - [place] [address] [place] [address] Dawood Mathias MD [address] [facility] [address] [place] [address] Health Maintenance Due Date Last Done Comments Pre-Diabetes and Diabetes Screening 1958 DTAP/TDAP/TD VACCINES (1 - Tdap) 1977 PNEUMOCOCCAL VACCINE 50+ YEA RS (1 of 2 - PCV) 1977 FIT-DNA Q 3 years 2003 FIT/FOBT Q 1 year 2003 Flex Sig/CT Colonography Q 5 years 2003 RSV VACCINE (60+ or ) (1 - Risk 50-74 years 1-dose series) 01/25/2008 ZOSTER VACCINE (1 of 2) 01/25/2008 COLORECTAL SCREENING 04/27/2021 04/27/2011 Colorectal Cancer Screening 04/27/2021 BREAST CANCER SCREENING 02/14/2022 02/14/2021, 02/14 INFLUENZA VACCINE (#1) 2025 , 04/26/2016, 08/12/2015 OSTEOPOROSIS SCREENING 02/14/2026 02/14/2021, 2020 Insurance [place] [address] [id number]
--- OUTSIDE RECORDS SUMMARY | 2025-06-25 14:37 | XMS_ITS | Clinical Summary ---
Author Organization [facility] Address [address] [place] [address] Care Team Providers Care Furnace Mechanic Helper Name Role Phone Sarmad Wright MD Primary Care Provider [phone] Source Comments [facility],non-owned Affiliates and Associated Physician Practices is amultiple site organization consisting of ambulatory clinics and hospital sitesin [place], [place], [place] and [place]. This disclosure is being madepursuant to the Care Everywhere program and may not contain all information available regarding this patient. Last updated 18.[facility] Active Problems Problem Noted Date Diagnosed Date Anemia 05/09/2015 Other retirement (current) drug therapy 5 Viral hepatitis C [...] on file Legal Sex Female 6:41 PM MECHANICAL SERVICE REPRESENTATIVE Gender Identity Not on file Sexual Orientation Not on file Last Filed Vital Signs Vital Sign Reading Time Taken Comments Blood Pressure 148/65 06/02/2013 10:36 AM MECHANICAL SERVICE REPRESENTATIVE Pulse 57 06/02/2013 10:36 AM MECHANICAL SERVICE REPRESENTATIVE Temperature 36.7 C (98 F) 06/02/2013 10:36 AM MECHANICAL SERVICE REPRESENTATIVE Respiratory Rate 12 06/02/2013 10:36 AM MECHANICAL SERVICE REPRESENTATIVE Oxygen Saturation - - Inhaled Oxygen Concentration - - Weight 70.8 kg (156 lb 1.6 oz) 06/02/2013 10:36 AM MECHANICAL SERVICE REPRESENTATIVE Height 158.8 cm (5' 2.5) 06/02/2013 10:36 AM CS T Body Mass Index 28.1 06/02/2013 10:36 AM MECHANICAL SERVICE REPRESENTATIVE Plan of Treatment Health Maintenance Due Date [...] REAL-TIME PCR QUANTASURE Routine 05/30/2013 10:34 AM MECHANICAL SERVICE REPRESENTATIVE from Last 3 Months or Most Recently Relevant to Health Maintenance Results * HEPATITIS C REAL-TIME PCR QUANTASURE (05/30/2013 10:34 AM MECHANICAL SERVICE REPRESENTATIVE) Hepatitis C Virus RNA PCR Quantitative <15 [...] of this assay have been determined by [employer]. Performance characteristics refer to the analytical performance of the test. For more information on this test, go to: http://education.HireWheel/faq/KCJ74u4 Test Performed at: [facility] [place] [address] LOUISE LEAVITT DO,MPH 05/30/2013 10:3 4 AM MECHANICAL SERVICE REPRESENTATIVE 05/30/2013 10:35 AM MECHANICAL SERVICE REPRESENTATIVE Marcia Webb PA-C LAB - SEROLOGY ORDERABL ES Final Result [facility]) [id number] from Last 3 Months or Most Recently Relevant to Health Maintenance Care Teams Furnace Mechanic Helper Relationship Specialty Start Date End Date Sarmad Wright MD [address] [place] [address] PCP - General 03/06/11
--- OUTSIDE RECORDS SUMMARY | 2025-06-25 14:37 | XMS_ITS | Clinical Summary ---
Author Organization [address] Address [address] [place] [address] Care Team Providers Care Hourly Caregiver Name Role Phone Selene Amezcua NP Primary Care Provider [phone] Allergies No known active allergies Medications cyanocobalamin [...] 1 tablet (100 mcg total) by mouth wall covering installer before breakfast 90 tablet 3 03/13/20 21 [...] 09/19/2020 Assessment & Plan (09/19/2020 1:38 PM ROTARY DERRICK OPERATOR): Medrol dose pack sent. Not to use [...] 08/19/2020 Assessment & Plan (08/19/2020 9:37 AM ROTARY DERRICK OPERATOR): DEXA ordered. Will contact with results once received. Hypothyroidism 08/19/2020 Assessment & Plan (08/19/2020 10:05 AM ROTARY DERRICK OPERATOR): Levothyroxine 100mcg daily TSH/T4 ordered; will contact with results when received. Reviewed med SE & scheduling. Reviewed sxs hypo/hyperthyroidism. No changes at this time. Encounter for screening mamm ogram for malignant neoplasm of breast 08/19/2020 Assessment & Plan (08/19/2020 9:38 AM ROTARY DERRICK OPERATOR): Mammogram order given; will call with results when received. Encouraged to perform monthly SBE. Personal history of pulmonary embolism Assessment & Plan (08/19/2020 10:04 AM ROTARY DERRICK OPERATOR): Taking eliquis 5mg BID. Has had 3 PE's since 1984 (2 since 2015). Encounter for screening for lipoid disorders Assessment & Plan (08/19/2020 9:38 AM ROTARY DERRICK OPERATOR): Lipid panel ordered; will call w/results when received. Reviewed diet/exercise recommendations. History of hepatitis C 08/19/2020 Assessment & Plan (08/19/2020 10:18 AM ROTARY DERRICK OPERATOR): H/o Hep C from blood transfusion. Completed treatment 6-7 yrs ago. Has completely resolved. Anemia 05/09/2015 Resolved Problems Problem Noted Date Diagnosed Date Resolved Date Class 1 obesity due to exces s calories without serious comorbidity with body mass index (BMI) of 30.0 to 30.9 in adult 09/19/202002/2021 Assessment & Plan (09/19/2020 1:15 PM ROTARY DERRICK OPERATOR): Reviewed need to lose weight, reviewed health benefits. Reviewed recommendations for daily intake & activity 20-30 minutes/day. Discussed healthy diet and importance of regular physical activity. BMI 29.0-29.9,adult 08/19/2020 09/19/19 Assessment & Plan (08/19/2020 9:37 AM ROTARY DERRICK OPERATOR): Reviewed need to lose weight, reviewed health benefits. Reviewed recommendations for daily intake & activity 20-30 minutes/day. Discussed healthy diet and importance of regular physical activity. Need for influenza vaccination 08/19/2020 09/19/2020 Assessment & Plan (08/19/2020 9:37 AM ROTARY DERRICK OPERATOR): Flu vaccine given today. Discussed possible tenderness/redness at injection site. [facility] to establish care 08/19/2020 09/19/2020 Assessment & Plan (08/19/2020 9:40 AM ROTARY DERRICK OPERATOR): -reviewed screening guidelines: no family history of [...] -lives at home with supportive family Other termite treater helper (current) drug therapy 05/09/2015 08/19/2020 Pulmonary embolism 04/27/2014 Viral hepatitis C without hepatic coma 11/25/2012 08/19/2020 Chronic hepatitis 05/27/2012 08/19/2020 Assessment & Plan (08/19/2020 10:02 AM ROTARY DERRICK OPERATOR): H/o Hep C from blood transfusion. Completed [...] on file Legal Sex Female 3:39 AM ROTARY DERRICK OPERATOR Gender Identity Not on file Sexual Orientation [...] Most Recently Relevant to Health Maintenance Insurance MEDICA [facility] MEDICARE ADVANTAGE [facility] MEDICARE Address: [address] [address] [place] [address] Care Teams Hourly Caregiver Relationship Specialty Start Date End Date Selene Amezcua NP [address] [place] [id number] PCP - General Nurse Practitioner 01/10/25
== END 2025-06-25 13:31 | disposition home or self-care (01) ==
LOC: ANHBWCIMG 13:30
PROVIDERS: PCP Nurse Practitioner Adult Health; Visit Provider Nurse Practitioner Adult Health
DX: M25.561 Pain in right knee (principal)
CPT/HCPCS: 73562